=== PATIENT | female | born 1985 | race Caucasian/White ===

== ENCOUNTER 2016-04-13 20:53 | Emergency (ER) | payer OTHER ==
[2016-04-13 21:00] VITALS: BP 135/90; PULSE 78; TEMP 98.5; BMI 37.5
--- NOTE | 2016-04-13 21:33 | PDOC ---
History of Present Illness - General History Source: Patient Exam Limitations: No Limitations <Phillip Oliver - Last Filed: 04/13/16 21:29> - General History Source: Patient Exam Limitations: No Limitations - History of Present Illness Initial Comments: 04/13/16 21:34 The patient is a 30 year old female presenting with her mother, with no significant past medical history, who presents to the emergency department with cough, nasal congestion, sore throat for the past 5 days and Bilateral eye erythema and irritation onset today. She describes her cough as productive of a green sputum. She reports that her sore throat has improved during this time frame. She states that she has had contact with multiple coworkers who are sick and family members diagnosed with pinkeye over the last couple of weeks. The patient denies fever, chills or shortness of breath, nausea, vomit or diarrhea Allergies: None Past surgical history: None reported Social history: No alcohol, tobacco or drug use reported <Misbah Christianson - Last Filed: 04/13/16 21:36> - General Chief Complaint: Pain Stated Complaint: REDNESS BOTH EYES, SORE THROAT Time Seen by Provider: 04/13/16 21:19 Past History - Past Medical History Asthma: Yes - Surgical History Abdominal Surgery: Yes ([facility] CYST 2006) - Psycho/Social/Smoking Cessation Hx Anxiety: No Suicidal Ideation: No Smoking Status: No Smoking History: Never smoked Number of Cigarettes Smoked Daily: 0 Hx Alcohol Use: No Drug/Substance Use Hx: No <Phillip Oliver - Last Filed: 04/13/16 21:29> <Misbah Christianson - Last Filed: 04/13/16 21:36> - Past Medical History Allergies/Adverse Reactions: Allergies Allergy/AdvReac Type Severity Reaction Status Date / Time No Known Allergies Allergy Verified 04/13/16 20:54 Home Medications: Ambulatory Orders NK [No Known Home Medication] 04/13/16 Review of Systems - Review of Systems Able to Perform ROS?: Yes HEENTM: Yes: Nose Congestion, Throat Pain, Other (Bilateral erythematous eyes and irritation ) Respiratory: Yes: Cough (Productive of green sputum ) All Other Systems: Reviewed and Negative <Misbah Christianson - Last Filed: 04/13/16 21:36> *Physical Exam - Vital Signs Last Vital Signs Temp Pulse Resp BP Pulse Ox 98.5 F 78 18 135/90 99 04/13/16 20:55 04/13/16 20:55 04/13/16 20:55 04/13/16 20:55 04/13/16 20:55 - Physical Exam General Appearance: Yes: Nourished, Appropriately Dressed. No: Apparent Distress HEENT: positive: Normal ENT Inspection, Nasal Congestion, Rhinorrhea Neck: positive: Supple. negative: Tender Respiratory/Chest: positive: Lungs Clear, Normal Breath Sounds. negative: Respiratory Distress Cardiovascular: positive: Regular Rhythm, Regular Rate Gastrointestinal/Abdominal: positive: Soft. negative: Tender Lymphatic: negative: Adenopathy Musculoskeletal: positive: Normal Inspection. negative: CVA Tenderness, Vertebral Tenderness Integumentary: positive: Normal Color Neurologic: positive: Fully Oriented, Alert, Normal Mood/Affect, Normal Response , Motor Strength 5/5 <Phillip Oliver - Last Filed: 04/13/16 21:29> - Vital Signs Last Vital Signs Temp Pulse Resp BP Pulse Ox 98.5 F 78 18 135/90 99 04/13/16 20:55 04/13/16 20:55 04/13/16 20:55 04/13/16 20:55 04/13/16 20:55 <Misbah Christianson - Last Filed: 04/13/16 21:36> *DC/Admit/Observation/Transfer <Phillip Oliver - Last Filed: 04/13/16 21:29> - Attestations Scribe Attestion: 04/13/16 21:36 Documentation prepared by Misbah Christianson, acting as family practice medical doctor for Phillip Oliver MD. <Misbah Christianson - Last Filed: 04/13/16 21:36> Diagnosis at time of Disposition: Viral syndrome - Discharge Dispostion Disposition: HOME Condition at time of disposition: Stable - Patient Instructions Additional Instructions: PLENTY OF FLUIDS (WATER/GATORADE) MOTRIN/TYLENOL FOR FEVER OR PAIN REST RETURN IF FEVER, VOMITING, SHORTNESS OF BREATH
== END 2016-04-13 21:45 | disposition home or self-care (01) ==
LOC: FER 20:53
DX: B34.9 Viral infection, unspecified (principal)
CPT/HCPCS: 99283-25

== ENCOUNTER 2021-03-26 16:10 | Emergency (ER) | payer OTHER ==
[2021-03-26 16:32] VITALS: BP 117/67; PULSE 78; TEMP 97.8; BMI 36.0
[2021-03-26] MEDS ORDERED: IBUPROFEN 400 MG TABLET (FP) PO ONE ×2 (16:38→16:43)
[2021-03-28 14:12] LABS: SARS-CoV-2 NAA Detected (Not Detected)
== END 2021-03-26 17:24 | disposition home or self-care (01) ==
LOC: FER 16:10
DX: J40 Bronchitis, not specified as acute or chronic (principal); Z11.52 Encounter for screening for COVID-19
CPT/HCPCS: 71045-TC-FY; 99284-25; C9803; U0003; U0005